=== PATIENT | male | born 1955 | race Caucasian/White ===

== ENCOUNTER 2023-04-08 09:16 | Day surgery (SDC) | payer OTHER ==
[2023-04-04 09:23] VITALS: BMI 19.9
[2023-04-08 09:56] VITALS: RESP 18; TEMP 97.9
[2023-04-08 11:37] VITALS: BP 115/65; PULSE 66
== END 2023-04-08 11:30 | disposition home or self-care (01) ==
LOC: FASU-ENDO 09:16
PROVIDERS: ATTEND Internal Medicine Gastroenterology
PROC: 0DJD8ZZ Inspection of Lower Intestinal Tract, Via Natural or Artificial Opening Endoscopic (ICD-10-PCS; principal; 2023-04-08 10:20)
DX: Z12.11 Encounter for screening for malignant neoplasm of colon (principal); K57.30 Diverticulosis of large intestine without perforation or abscess without bleeding